=== PATIENT | male | born 1940 | race Caucasian/White ===

== ENCOUNTER 2016-12-04 23:07 | Inpatient (IN) | payer MEDICARE ==
--- OUTSIDE RECORDS SUMMARY | 2016-12-04 23:10 | XMS | Clinical Summary ---
:1940 Author Organization [facility] Address [address] [place] [address] Phone Care Team Providers Name Role Phone , Primary Care Provider Unavailable Allergies Not on File Current Medications Not on file Active Problems Not on file Social History Tobacco Use Types Packs/Day Years Used Date Never Assessed Sex Assigned at Date Recorded Not on file Last Filed Vital Signs Not on file Plan of Treatment Not on file Results Not on filefrom Last 3 Months
[2016-12-05] MEDS ORDERED: Adenosine 6 MG/2 ML VIAL ONE (00:20)
[2016-12-05 01:17] LABS: #Lymphocytes 0.7 thou/uL (1.20-3.40); #Monocytes 0.2 thou/uL (0.11-0.59); #Neutrophils 10.6 thou/uL (1.40-6.50); %Eosinophils 0.1 % (0.0-10.0); %Monocytes 1.3 % (0.0-10.0); Hematocrit 47.7 % (42.0-52.0); Mean Platelet Volume 5.8 fL (7.4-10.4); Red Blood Cell (RBC) Count 5.16 mill/uL (4.70-6.10); White Blood Cell (WBC) Count 11.5 thou/uL (4.8-10.8)
[2016-12-05] MEDS ORDERED: Enoxaparin Sodium 60 MG/0.6 ML SYRINGE ONE (01:38)
[2016-12-05 01:47] LABS: ALT (SGPT) 42 U/L (8-55); AST (SGOT) 117 U/L (5-34); Alkaline Phosphatase 63 U/L (40-150); Anion Gap 13 mmol/L (10-20); BUN (Urea Nitrogen) 17 mg/dL (8.4-25.7); Bilirubin, Total 1.5 mg/dL (0.2-1.2); Calc. Creatinine Clearance 0 mL/min (70-130); Calcium 9.2 mg/dL (7.8-10.44); Carbon Dioxide 23 mmol/L (23-31); Chloride 104 mmol/L (98-107); Estimated GFR-MDRD 83; Globulin 3.7 g/dL (2.4-3.5); Magnesium 2.1 mg/dL (1.6-2.6); Protein, Total 7.5 g/dL (5.8-8.1)
[2016-12-05 01:59] LABS: Troponin I 0.909 ng/mL (< 0.028)
[2016-12-05 02:01] LABS: CK (CPK) 7542 U/L (30-200)
--- NOTE | 2016-12-05 02:01 | PDOC.EVN ---
Event Note - Event Note Event Note: 329270 H&P Dictated 1. NSTEMI 2. SVT 3. H/O HTN 4. Fall, near syncope 5. H/O HPL plan see orders
[2016-12-05] MEDS ORDERED: HYDROcodone/Acetaminophen 5/325 mg Tablet PO PRN (02:02)
[2016-12-05] MEDS ORDERED: Ondansetron HCl/PF 4 MG/2 ML Vial IVP PRN (02:02)
[2016-12-05] MEDS ORDERED: Acetaminophen 325 MG TAB PO PRN (02:02)
[2016-12-05 02:25] LABS: Bilirubin Negative (Negative); Blood, Urine Large (Negative); Glucose, Urine (Dipstick) Negative (Negative); Ketone, Urine Trace mg/dL (Negative); Nitrite Negative (Negative); Protein, Urine (Dipstick) 30 mg/dL (Neg-Trace); Urobilinogen 0.2 mg/dL (0.2-1.0)
[2016-12-05 02:27] LABS: Bacteria/HPF None Seen HPF (None Seen); Hyaline Casts/LPF 7-10 HYALINE CAST LPF (0-3 Hyaline); Squamous Epithelial 0-3 HPF (0-3); WBC/HPF 0-3 HPF (0-3)
[2016-12-05 02:41] LABS: Yeast-All Forms None Seen HPF (None Seen)
--- NOTE | 2016-12-05 03:18 | HP ---
DATE OF ADMISSION: 12/05/2016 CHIEF COMPLAINT: Fall, near syncope. HISTORY OF PRESENT ILLNESS: The patient is a 75-year-old male with past medical history of hyperten blaire, coronary artery disease, hyperlipidemia, now came to the hospital because of the fall. The pa barry said he was at home and he was went to the restroom and while washing his hand, he fell down, he does not know what happened, he thinks he passed out for a few seconds. When he tried to get up, he could not able to get up and then he did hit his head when he fell down. Denies any bowel or bl adder incontinence. He was very weak, so paramedics brought him to the outside ER. In the outside ER, the patient was found to be having some possible pneumonia, so the patient was transferred here. Upon arrival to our ER, the patient's heart rate was increased up to 180s, so the patient was give n adenosine and heart rate improved and the patient was started on Cardizem drip. The patient denie s any chest pain, denies any palpitation at this time, but complains of generalized weakness. Denie s any headache. Denies nausea, denies vomiting. PAST MEDICAL HISTORY: As per HPI. PAST SURGICAL HISTORY: Cardiac stent. SOCIAL HISTORY: Positive for alcohol usage. Denies smoking, denies any drugs. MEDICATIONS: Reviewed. FAMILY HISTORY: Positive for heart problems. REVIEW OF SYSTEMS: Constitutional: Denies any fever, denies any chills. Head: Positive for bruis ing. Neck: Denies any neck pain. Ears: Denies any ear pain. Cardiovascular system: Denies any chest pain. Denies any palpitations. Respiratory system: Denies any cough, denies any sputum prod uction. Gastrointestinal system: Denies nausea, denies vomiting. Musculoskeletal: Denies any beverley nt deformities. Cranial nerve system: Possible syncope. Psychiatric: Denies anxiety. Integument gonzález: Positive for abrasions. All other review of systems are reviewed and are negative. PHYSICAL EXAMINATION: CONSTITUTIONAL/VITAL SIGNS: At the time of H\T\P performed, blood pressure 140/70, heart rate 80, r espiratory rate 18, pulse ox 97%. GENERAL: The patient appears tired. HEENT: Anterior nares patent. Nose is normal. Ears are normal. Teeth is intact. Tongue is moist . NECK: Supple. No JVD. CARDIOVASCULAR SYSTEM: S1, S2 present. Regular rate and rhythm, no murmurs, no rubs, no gallops. RESPIRATORY SYSTEM: No wheezing, no rhonchi. Breath sounds bilaterally. GASTROINTESTINAL: Abdomen is soft, nontender, no guarding, no organomegaly, no masses felt. MUSCULOSKELETAL: Bilateral erythematous, abrasions present and bruising present. Head, forehead re gion positive for abrasion seen. INTEGUMENTARY: Positive for abrasions. CRANIAL NERVES SYSTEM: Awake, follows commands. Speech is clear. PSYCHIATRIC: Mood is appropriate at this time. LABORATORY DATA AND IMAGING: At the time of H\T\P performed, BMP showed sodium 136, potassium 3.6, chloride 104, CO2 of 23, BUN of 17, creatinine 0.89 and troponin 0.88 in the outside ER. AST 117, A LT 42, CK pending. Albumin 3.8. White count 11.5, hemoglobin 15.9, platelet count is 178. EKG Pos itive for SVT, positive for ST changes seen, mild. ASSESSMENT AND PLAN: The patient is a 75-year-old male. 1. Mpi-WP-caaiiry elevation myocardial infarction, possible demand ischemia, but need to rule out o ther etiology. Plan to check cardiac enzymes. Plan to consult Cardiology to evaluate the patient. Plan to monitor the patient closely. We will admit the patient to IMU. Plan to give a dose of Rafael enox in the ER if CT head is negative. 2. Fall/near syncope. Monitor closely. Plan to do CT head to rule out any other etiology. We joseph l follow the patient closely. 3. Supraventricular tachycardia, heart rate control at this time. Continue Cardizem drip for tonig ht. We will monitor heart rate closely. He has had a cardiac ablation in the past per patient and patient . We will wait for Cardiology input. We will check 2D echo. 4. History of hypertension. Continue home blood pressure medications. 5. Coronary artery disease and hyperlipidemia. Continue home medications. The case was discussed in detail with the patient.
[2016-12-05 04:17] LABS: Hematocrit 46.6 % (42.0-52.0); Red Blood Cell (RBC) Count 5.02 mill/uL (4.70-6.10); White Blood Cell (WBC) Count 11.1 thou/uL (4.8-10.8)
[2016-12-05 04:26] LABS: Band 6 % (5-11); Neutrophil 90 % (42-75)
[2016-12-05 04:39] VITALS: BMI 35.8
[2016-12-05 04:45] LABS: Anion Gap 14 mmol/L (10-20); BUN (Urea Nitrogen) 16 mg/dL (8.4-25.7); Calc. Creatinine Clearance 111 mL/min (70-130); Calcium 9.1 mg/dL (7.8-10.44); Carbon Dioxide 25 mmol/L (23-31); Chloride 104 mmol/L (98-107); Estimated GFR-MDRD 79
[2016-12-05] MEDS: Sodium Chloride 0.9% 1,000 ML IV SCH ×2 (05:00→14:43)
[2016-12-05 05:01] LABS: Critical Call Chem Troponin I RESULT DECREASING; Troponin I 0.696 ng/mL (< 0.028)
--- NOTE | 2016-12-05 08:11 | CON ---
DATE OF CONSULTATION: 12/05/2016 CONSULTING PHYSICIAN: Dr. Malik REASON FOR CONSULTATION: ICU management. HISTORY OF PRESENT ILLNESS: The patient is a pleasant 75-year-old male who was found down at home y esterday. Apparently he had some type of syncopal spell. He could not manage to get himself up to call for help. He had turned the faucet on and was actually found in water as the sink was overflow ing by the time he was found a couple hours later by extended family members. He was brought [facility] to the [place] ER. He states he has had some cough and congestion and it was thought that he could have pneumonia. He was started empirically on antibiotics. He was found to have a heart rate in the 180s and he was placed on Cardizem, which resulted in improvement in heart rate. PAST MEDICAL HISTORY: 1. Hypertension. 2. Supraventricular tachycardia requiring ablation. 3. Coronary artery disease. 4. Gout. PAST SURGICAL HISTORY: Appendectomy and tonsillectomy. SOCIAL HISTORY: Nonsmoker. Drinks a couple beers a month. Lives with his . He is retired [employer]. FAMILY MEDICAL HISTORY: Remarkable for coronary disease. ALLERGIES: PENICILLIN causes throat, lip and tongue swelling. MEDICATIONS PRIOR TO ADMISSION: Vitamin B12 1000 mcg daily, aspirin 81 mg daily, ascorbic acid 500 mg daily, allopurinol 300 mg daily, Ramipril 5 mg daily, omega 3 fatty acid 1000 mg b.i.d. REVIEW OF SYSTEMS: Denies fever, chills, nausea, vomiting, chest pain, hematemesis, melena, hematoc hezia, hematuria, or dysuria. PHYSICAL EXAMINATION: VITAL SIGNS: Temperature 99, pulse 71, blood pressure 127/53. HEENT: Unremarkable. NECK: Without adenopathy or JVD. LUNGS: Clear to auscultation without wheezing or rhonchi. CARDIAC: S1, S2 regular. He is currently on a Cardizem drip. ABDOMEN: Soft, obese, nontender, nondistended. EXTREMITIES: Without clubbing, cyanosis, or edema. LABORATORY AND X-RAY FINDINGS: White blood cell count 11.1, hematocrit 46, platelet count 177. Sod ium 139, potassium 3.8, chloride 104, CO2 25, BUN 16, creatinine 0.9, glucose 206. CPK was noted at 7542 yesterday. Troponin 0.696. Urinalysis showed a few red cells. ASSESSMENT: 1. Supraventricular tachycardia. 2. Syncopal spell at home, likely secondary to supraventricular tachycardia. 3. Rhabdomyolysis, likely secondary to the patient's effort in trying to get up yesterday without s uccess. 4. History of gout. RECOMMENDATIONS: 1. I do not see anything that would indicate that he has an infection. Therefore, I think I would consider discontinuing the antibiotics if the chest x-ray is clear. 2. Continue IV fluids. 3. Recheck CPK tomorrow. 4. He is currently on heparin for DVT prophylaxis. 5. From my standpoint he could go to telemetry.
--- NOTE | 2016-12-05 08:31 | CT ---
PRELIMINARY REPORT/[facility]/EMERGENCY AFTER HOURS PROCEDURE: EXAM: CT Head Without Intravenous Contrast CLINICAL HISTORY: 75 years old, male; Signs and symptoms; Dizziness; Patient HX: Dizzy, acute coronary syndrome TECHNIQUE: Axial computed tomography images of the head/brain without intravenous contrast. COMPARISON: No relevant prior studies available. FINDINGS: Brain: There is no evidence for acute stroke or bleed. There is global and diffuse parenchymal volume loss. There are scattered foci of decreased attenuation in the periventricular and subcortical white matte r, nonspecific, but most consistent with chronic small vessel ischemic changes in patient of this age. Ventricles / cisterns / extra-axial spaces: There is no hydrocephalus, midline shift, or acute extra-axial fluid collection. There is no sulcal effacement. Sinuses: No findings of acute sinusitis or suspicious sinus mass. Bone: No acute fracture or displacement. Impression: Chronic changes without evidence for acute, intracranial pathology. Thank you for allowing us to participate in the care of your patient. Dictated and Authenticated by: Elian Carney MD 12/05/2016 3:13 AM Central Time ([place] \T\ [place]) FINAL REPORT CT BRAIN WITHOUT CONTRAST: I agree with the preliminary report given by Dr. Elian Carney of [facility]. POS: [facility]
[2016-12-05] MEDS ORDERED: Heparin 5,000 UNITS/ML VIAL SC SCH (09:00)
[2016-12-05 09:03] LABS: Troponin I 0.491 ng/mL (< 0.028)
--- NOTE | 2016-12-05 09:41 | PDOC.PN ---
- Subjective Encounter Start Date: 12/05/16 Encounter Start Time: 09:39 Mr. Morelos says he feels fine. He denies having chest pain or shortness of breath, he says not much more short of breath than usual. - Objective MAR Reviewed: Yes Vital Signs & Weight: Vital Signs (12 hours) Temp Pulse Resp Pulse Ox 12/05/16 08:00 99.0 F 73 16 95 12/05/16 04:24 99.0 F 73 16 94 L 12/05/16 04:15 99.0 F Weight Weight 256 lb 9.889 oz Most Recent Monitor Data Heart Rate from ECG 73 NIBP 121/75 NIBP BP-Mean 88 Respiration from ECG 22 SpO2 94 I&O: 12/04/16 12/05/16 12/06/16 06:59 06:59 06:59 Intake Total 156.1 Output Total 250 Balance -93.9 Result Diagrams: 12/05/16 04:00 12/05/16 04:00 Phys Exam - Physical Examination HEENT: PERRLA Respiratory: no wheezing, no rales, no rhonchi, clear to auscultation bilateral Cardiovascular: RRR, no significant murmur Gastrointestinal: soft, non-tender, positive bowel sounds Musculoskeletal: no edema Dx/Plan (1) SVT (supraventricular tachycardia) Code(s): I47.1 - SUPRAVENTRICULAR TACHYCARDIA Status: Acute (2) Dyslipidemia Code(s): E78.5 - HYPERLIPIDEMIA, UNSPECIFIED Status: Acute (3) HTN (hypertension) Code(s): I10 - ESSENTIAL (PRIMARY) HYPERTENSION Status: Acute - Plan * SVT- patient is on a Cardizem drip, and has now converted to sinus. * CAD- will await further recommendations from Cardiology * ? Pneumonia- will await chest X-ray- continue Levaquin in the interim * HTN- blood pressure is controlled * Stable for transfer to Telemetry
--- NOTE | 2016-12-05 09:59 | CON ---
DATE OF SERVICE: 12/05/2016 CRITICAL CARE NOTE The patient is a 75-year-old gentleman with a history of coronary artery disease who presented with syncope. The patient has a long history of coronary artery disease. Please see previous H&P's for complete details. The patient has previously undergone PTCA and stent placement into the left anterior descending artery. He was seen here approximately a year ago with chest pain and dyspnea. He was found also to have SVT. He underwent a cardiac catheterization and was found to have a patent coronary stent. He also underwent ablation for SVT. The patient was in his usual state of health until a few days ago when he started feeling weak. He had subsequently developed diarrhea. He started feeling muscle aching. He went to the bathroom and after having a bowel movement became extremely weak and fell down. He apparently lost consciousness. He became so weak that he could not get out of his bathroom. He was in there for several hours. The patient did not develop any chest discomfort. PAST MEDICAL HISTORY: 1. Coronary artery disease. 2. Hypertension. 3. Dyslipidemia. 4. Gout. PAST SURGICAL HISTORY: Tonsillectomy, appendectomy, and achilles surgery. ALLERGIES: He is allergic to PENICILLIN. MEDICATIONS ON ADMISSION: Aspirin 325 daily, Crestor 20 daily, Altace 5 daily, Allopurinol 300 daily SOCIAL HISTORY: Nonsmoker. PHYSICAL EXAMINATION: GENERAL: This is an obese gentleman in no acute distress. VITAL SIGNS: Blood pressure 121/75. NECK: Showed no jugular venous distention, no carotid bruits. LUNGS: Clear to auscultation. HEART: Regular rate and rhythm, normal S1, S2, no murmurs. ABDOMEN: Nondistended. EXTREMITIES: Showed no edema. SKIN: Warm and dry. NEUROLOGIC: Nonfocal. VASCULAR: Radial pulses are 2+. LABORATORY: Sodium 139, potassium 3.8, chloride 104, bicarbonate 25, BUN 16, creatinine 0.93, glucose 206. CPK was 7542. CPK MB 30, troponin 0.9. White blood cell count is 11.1, hemoglobin 16.0, hematocrit 46.6 and platelets were 177. His EKG revealed normal sinus rhythm with a normal ECG. IMPRESSION: 1. Syncope. 2. Supraventricular tachycardia. 3. History of coronary artery disease with a patent stent in 2016. 4. Probable non-Q-wave myocardial infarction. 5. History of hypertension. 6. Obesity. PLAN: This gentleman had a syncopal episode. It is unclear why he was so weak after his fall. I will obtain an EP consultation. We will recheck the patient' s echocardiogram. We will follow this patient with you through his hospitalization. Critical Care Time: 30 minutes MTDD
[2016-12-05] MEDS: Ascorbic Acid 500 mg Chewable Tablet PO SCH (10:27)
[2016-12-05] MEDS: Allopurinol 300 MG TAB PO SCH (10:28)
[2016-12-05] MEDS: Enoxaparin Sodium 40 MG/0.4 ML SYRINGE SC SCH (20:26)
[2016-12-05] MEDS ORDERED: Ramipril 5 MG CAP PO SCH (21:00)
[2016-12-06] MEDS: Sodium Chloride 0.9% 1,000 ML IV SCH ×2 (05:23→18:03)
[2016-12-06 06:06] LABS: Anion Gap 11 mmol/L (10-20); BUN (Urea Nitrogen) 18 mg/dL (8.4-25.7); CK (CPK) 3484 U/L (30-200); Calc. Creatinine Clearance 123 mL/min (70-130); Calcium 8.6 mg/dL (7.8-10.44); Carbon Dioxide 27 mmol/L (23-31); Chloride 105 mmol/L (98-107); Estimated GFR-MDRD Greater than 90
[2016-12-06] MEDS: Ascorbic Acid 500 mg Chewable Tablet PO SCH (08:15)
[2016-12-06] MEDS: Allopurinol 300 MG TAB PO SCH (08:15)
--- NOTE | 2016-12-06 08:17 | RAD ---
RADIOGRAPH CHEST 1 VIEW: Date: 12/06/16 Time: 0723 HOURS HISTORY: 75-year-old male with pneumonia. COMPARISON: 08/30/15. FINDINGS: Again, inspiration is shallow. Tortuous aorta. Cardiac shadow is partially obscured inferior to the diaphragm because of the shallow inspiration. Diffuse pulmonary engorgement. No consolidation or fra nk pulmonary alveolar edema. No pneumothorax. Lateral costophrenic angles are sharp. No interval yudy nge. IMPRESSION: 1. No evidence of pneumonia, but the posterior lung bases are not visualized, and would require a l ateral view. 2. Pulmonary vascular engorgement, suggesting borderline congestive changes. ARIEL [] POS: [facility]
--- NOTE | 2016-12-06 10:39 | PDOC.PN ---
- Subjective Encounter Start Date: 12/06/16 Encounter Start Time: 10:37 Mr. Morelos says he felt a little dizzy when he got up to go to the bathroom , and now he feels fine. No chest pain. - Objective MAR Reviewed: Yes Vital Signs & Weight: Vital Signs (12 hours) Temp Pulse Resp BP BP Pulse Ox 12/06/16 08:11 97.9 F 69 18 133/64 93 L 12/06/16 04:00 97.5 F L 60 20 129/69 93 L 12/06/16 00:00 97.5 F L 66 20 152/68 H 93 L Weight Weight 249 lb 8 oz Most Recent Monitor Data Heart Rate from ECG 73 NIBP 138/73 NIBP BP-Mean 95 Respiration from ECG 13 SpO2 92 I&O: 12/05/16 12/06/16 12/07/16 06:59 06:59 06:59 Intake Total 156.1 3336 Output Total 250 1810 Balance -93.9 1526 Result Diagrams: 12/05/16 04:00 12/06/16 04:53 Phys Exam - Physical Examination HEENT: PERRLA Respiratory: no wheezing, no rales, no rhonchi, clear to auscultation bilateral Cardiovascular: RRR, no significant murmur Gastrointestinal: soft, non-tender, positive bowel sounds Musculoskeletal: no edema Dx/Plan (1) SVT (supraventricular tachycardia) Code(s): I47.1 - SUPRAVENTRICULAR TACHYCARDIA Status: Acute (2) Dyslipidemia Code(s): E78.5 - HYPERLIPIDEMIA, UNSPECIFIED Status: Acute (3) HTN (hypertension) Code(s): I10 - ESSENTIAL (PRIMARY) HYPERTENSION Status: Acute - Plan * SVT- patient has remained in sinus rhythm so far * HTN - blood pressure is stable * ? Pneumonia- Radiologist did not feel there was evidence for Pneumonia, radiographically- ? stop Levaquin * CAD- stable * Await evaluation by EP.
--- NOTE | 2016-12-06 11:50 | PRG ---
DATE OF SERVICE: 12/06/2016 SUBJECTIVE: The patient is doing better today, had no acute complaints. PHYSICAL EXAMINATION: VITAL SIGNS: Temperature 97.9, pulse 69, respirations 18, O2 sat 93%, blood pressure 133/64. HEENT: Unremarkable. NECK: No JVD. CHEST: Clear. CARDIAC: S1 and S2 regular. ABDOMEN: Soft. EXTREMITIES: No edema. LABORATORY DATA: Sodium 139, potassium 4, chloride 105, CO2 27, BUN 18, creatinine 0.8, glucose 149 . CPK down to 3484. White blood cell count 11.1, hematocrit 46.6, platelet count 46. ASSESSMENT: 1. Supraventricular tachycardia. 2. Rhabdomyolysis. RECOMMENDATIONS: 1. We would continue slow hydration. 2. Agree with stopping the antibiotics. 3. Likely to need an EP study next week.
[2016-12-06] MEDS: Enalaprilat Dihydrate 1.25 MG/ML VIAL SLOW IVP PRN (18:39)
[2016-12-06] MEDS: Enoxaparin Sodium 40 MG/0.4 ML SYRINGE SC SCH (19:35)
[2016-12-07] MEDS: Sodium Chloride 0.9% 1,000 ML IV SCH ×2 (03:39→19:32)
[2016-12-07] MEDS: Ascorbic Acid 500 mg Chewable Tablet PO SCH (09:30)
[2016-12-07] MEDS: Allopurinol 300 MG TAB PO SCH (09:31)
--- NOTE | 2016-12-07 11:06 | PRG ---
DATE OF SERVICE: 12/07/2016 SUBJECTIVE: The patient is awake, alert, doing well, starting to walk around the room. PHYSICAL EXAMINATION: VITAL SIGNS: Temperature 96.2, pulse 58, respirations 18, O2 sat 94%, blood pressure 114/69. HEENT: Unremarkable. NECK: No JVD. LUNGS: Fairly clear. CARDIAC: S1 and S2 regular. ABDOMEN: Soft. EXTREMITIES: No edema. ASSESSMENT: 1. Mild rhabdomyolysis. 2. Status post prolonged episode of supraventricular tachycardia. PLAN: 1. EP study tomorrow. 2. No active pulmonary problems at this point. Please recall if further assistance needed.
--- NOTE | 2016-12-07 11:33 | PDOC.PN ---
- Subjective Encounter Start Date: 12/07/16 Encounter Start Time: 11:31 Mr. Reyes does not have any complaints. today. He has not had any chest pain or shortness of breath. - Objective MAR Reviewed: Yes Vital Signs & Weight: Vital Signs (12 hours) Temp Pulse Resp BP Pulse Ox 12/07/16 08:40 96.2 F L 58 L 18 95 12/07/16 03:47 96.2 F L 58 L 18 114/69 94 L 12/06/16 23:50 98.3 F 61 20 135/63 94 L Weight Weight 250 lb 1.6 oz Most Recent Monitor Data Heart Rate from ECG 73 NIBP 138/73 NIBP BP-Mean 95 Respiration from ECG 13 SpO2 92 I&O: 12/06/16 12/07/16 12/08/16 06:59 06:59 06:59 Intake Total 3336 3195 Output Total 1810 875 Balance 1526 2320 Result Diagrams: 12/05/16 04:00 12/06/16 04:53 Phys Exam - Physical Examination HEENT: PERRLA Respiratory: no wheezing, no rales, no rhonchi, clear to auscultation bilateral Cardiovascular: RRR, no significant murmur Gastrointestinal: soft, non-tender, positive bowel sounds Musculoskeletal: no edema Dx/Plan (1) SVT (supraventricular tachycardia) Code(s): I47.1 - SUPRAVENTRICULAR TACHYCARDIA Status: Acute (2) Dyslipidemia Code(s): E78.5 - HYPERLIPIDEMIA, UNSPECIFIED Status: Acute (3) HTN (hypertension) Code(s): I10 - ESSENTIAL (PRIMARY) HYPERTENSION Status: Acute - Plan * SVT- he has been in sinus rhythm so far * Await EP studies this coming week * Pneumonia- this has been ruled out and antibiotics have been discontinued * HTN- blood pressure is stable.
--- NOTE | 2016-12-07 16:06 | PDOC.CTH ---
Cardiology Progress Note - Subjective No new issues overnight. Rhythm remains stable. Tolerating current meds. Denies CV symptoms. Anticipate EPS this next week with Dr. Henry. - Objective Vital Signs Temp Pulse Resp BP Pulse Ox 12/07/16 12:52 97.7 F 63 20 142/65 H 94 L 12/07/16 08:40 96.2 F L 58 L 18 95 Weight 250 lb 1.6 oz 12/06/16 12/07/16 12/08/16 06:59 06:59 06:59 Intake Total 3336 3195 Output Total 1810 875 Balance 1526 2320 - Physical Examination General/Neuro: alert & oriented x3, NAD Neck: carotid US brisk, no JVD present Lungs: CTA, unlabored respirations Heart: PMI normal, RRR Abdomen: no HSM, NT/ND, soft Extremities: other: (2+ pulses, minimal edema) Other PE findings: Neuro: no focal motor defs - Telemetry Telemetry Rhythm: sinus rhythm - Labs Result Diagrams: 12/05/16 04:00 12/06/16 04:53 Troponin/CKMB CK-MB (CK-2) 30.1 ng/mL (0-6.6) H* 12/05/16 01:07 Troponin I 0.491 ng/mL (< 0.028) H* 12/05/16 08:06 - Assessment/Plan 1. syncope: EP study planned for this week with Dr. Henry. 2. HTN: controlled. Continue medical management.
[2016-12-07] MEDS ORDERED: FLU VACC TS2017-18 (>65YR) 0.5 ML SYRINGE IM ONE (21:00)
[2016-12-07] MEDS: Enoxaparin Sodium 40 MG/0.4 ML SYRINGE SC SCH (21:03)
[2016-12-08] MEDS: Enalaprilat Dihydrate 1.25 MG/ML VIAL SLOW IVP PRN (05:35)
--- NOTE | 2016-12-08 07:56 | PQF ---
CLINICAL DOCUMENTATION IMPROVEMENT CLARIFICATION FORM: ICD-10 Updated PLEASE DO AN ADDENDUM TO THE PROGRESS NOTE WITH ANY DOCUMENTATION UPDATES OR ADDITIONS AND CARRY THROUGH TO DC SUMMARY. THANK YOU. DATE: 12/08 ATTN: DR. HUMBERTO PEOPLES Please exercise your independent, professional judgment in responding to the clarification form. Clinical indicators are provided on the bottom of this form for your review Please check appropriate box(s): AMI TYPE: [ ] Acute Coronary Syndrome (ACS) without Acute [place] meaning Unstable Angina [ ] NSTEMI [ X ] AMI Type II ONSET OF INFARCTION: [ ] Onset Less than 4 weeks of admission [ ] Onset Greater than 4 weeks of admission [ ] Unable to determine DUE TO (if applicable): [ ] Stent occlusion [ ] In-Stent stenosis [ ] Underlying CAD [ ] Other [ X ] Other diagnosis SVT [ ] Unable to determine In addition, please specify: Present on Admission (POA): [X ] Yes [ ] No [ ] Unable to determine CLINICAL INDICATORS - SIGNS / SYMPTOMS / LABS TROP I: 0.909 CKMB: 30.2 (12/05, ADMIT) 0.696 0.491 CARDIOLOGY CONSULT DOCUMENTATION 12/05: IMPRESSION: 4. PROBABLE NON-Q WAVE MYOCARDIAL INFARCTION CHEST PAIN, DIAPHORESIS, DIZZINESS RISKS: HISTORY OF CAD W/STENT HTN HISTORY SVT W/ABLATION EPISODE OF SVT IN ER TREATMENTS: TELEMETRY MONITORING CARDIOLOGY CONSULT THANK YOU! Shanti (This form is maintained as a part of the permanent medical record) 2014 [employer]. All Rights Reserved Shanti Barnett RN, BSN [email or web address] Office: [phone] [facility]
[2016-12-08] MEDS: Allopurinol 300 MG TAB PO SCH (09:32)
[2016-12-08] MEDS: Ascorbic Acid 500 mg Chewable Tablet PO SCH (09:32)
--- NOTE | 2016-12-08 11:09 | PDOC.PN ---
- Subjective Encounter Start Date: 12/08/16 Encounter Start Time: 11:07 Mr. Reyes does not have any complaints. He denies chest pain or difficulty breathing. - Objective MAR Reviewed: Yes Vital Signs & Weight: Vital Signs (12 hours) Temp Pulse Resp BP BP Pulse Ox 12/08/16 09:34 98.3 F 59 L 14 159/73 H 95 12/08/16 06:48 61 20 156/70 H 12/08/16 05:35 170/79 H 12/08/16 04:57 54 L 20 170/79 H 12/08/16 04:00 97.8 F 57 L 18 141/67 H 96 Weight Weight 264 lb Most Recent Monitor Data Heart Rate from ECG 73 NIBP 138/73 NIBP BP-Mean 95 Respiration from ECG 13 SpO2 92 I&O: 12/07/16 12/08/16 12/09/16 06:59 06:59 06:59 Intake Total 3195 3571 Output Total 875 2500 Balance 2320 1071 Result Diagrams: 12/05/16 04:00 12/06/16 04:53 Phys Exam - Physical Examination HEENT: PERRLA Respiratory: no wheezing, no rales, no rhonchi, clear to auscultation bilateral Cardiovascular: RRR, no significant murmur Gastrointestinal: soft, non-tender, positive bowel sounds Musculoskeletal: no edema Dx/Plan (1) SVT (supraventricular tachycardia) Code(s): I47.1 - SUPRAVENTRICULAR TACHYCARDIA Status: Acute (2) Dyslipidemia Code(s): E78.5 - HYPERLIPIDEMIA, UNSPECIFIED Status: Acute (3) HTN (hypertension) Code(s): I10 - ESSENTIAL (PRIMARY) HYPERTENSION Status: Acute - Plan * SVT- awaiting EP studies * HTN- blood pressure is controlled * .
[2016-12-08] MEDS: Sodium Chloride 0.9% 1,000 ML IV SCH (12:14)
--- NOTE | 2016-12-08 20:11 | PRG ---
DATE OF SERVICE: 12/08/2016 ELECTROPHYSIOLOGY FOLLOWUP NOTE SUBJECTIVE: Mr. Morelos seems to be doing better. His breathing has improved. He has no new complaints at this time. OBJECTIVE DATA: VITAL SIGNS: Blood pressure is 159/73, heart rate 59, respirations 14, temperature 98.3 degrees Fahrenheit. GENERAL: Alert and oriented man in no apparent distress, elevated BMI. NECK: Supple. Jugular veins not distended. CHEST: Coarse, no crackles. ABDOMEN: Benign. Bowel sounds positive. EXTREMITIES: Lower extremities without edema, clubbing, or cyanosis. DATABASE: Telemetry strips reviewed revealing a short run of SVT like arrhythmia on the first, but no recurrence since. P waves are suspicious to be following the QRS by about 100 milliseconds. The echocardiogram report on 12/08/2016 shows LVEF 60%-65%. No regional wall motion abnormalities. ASSESSMENT AND PLAN: Mr. 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 Now, he is returning with recurrent tachycardia. The mechanisms are possible: recurrent orthodromic reciprocating tachycardia versus atrial tachycardia cannot be ruled out either. I discussed the option of EP study versus medical therapy at this time. He would like to have a more definitive EP ablation route. Risks and benefits again detailed to the family, they understand and willing to proceed. We will schedule him for tomorrow afternoon. He is kept n.p.o. after midnight. [facility]
[2016-12-08] MEDS: Enoxaparin Sodium 40 MG/0.4 ML SYRINGE SC SCH (20:43)
[2016-12-09] MEDS: Sodium Chloride 0.9% 1,000 ML IV SCH (00:07)
[2016-12-09 05:56] LABS: #Eosinphils 0.3 thou/uL (0.0-0.7); #Lymphocytes 1.4 thou/uL (1.20-3.40); #Monocytes 0.8 thou/uL (0.11-0.59); #Neutrophils 5.2 thou/uL (1.40-6.50); %Basophils 0.1 % (0.0-1.0); %Eosinophils 3.3 % (0.0-10.0); %Lymphocytes 18.9 % (21.0-51.0); %Monocytes 10.1 % (0.0-10.0); Hematocrit 43.9 % (42.0-52.0); Mean Platelet Volume 6.3 fL (7.4-10.4); White Blood Cell (WBC) Count 7.6 thou/uL (4.8-10.8)
--- NOTE | 2016-12-09 06:05 | CON ---
DATE OF CONSULTATION: 12/05/2016 ELECTROPHYSIOLOGY CONSULTATION REPORT REFERRING PHYSICIAN: Nikolay Hull M.D. I am seeing Mr. Morelos at our [facility] as an electrophysiology senior solutions consultant. His problems are: 1. Recurrent supraventricular tachycardia. A. Prior history of EP study and radiofrequency ablation in 08/31/[address] 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 2. History of coronary artery disease with prior stents. 3. History of normal LVEF noted in the past. 4. Coronary artery risk factors. A. Hypertension. B. Hyperlipidemia. C. Obesity. ALLERGIES: PENICILLIN. MEDICATIONS PRIOR TO ADMISSION: Aspirin, ramipril, cyanocobalamin, ascorbic acid, omega-3 fatty acid, allopurinol. Currently, the patient is also on diltiazem. SUBJECTIVE: Mr. Morelos has been admitted on the with complaints of falling down for a couple of seconds. He could not get up and eventually took some while to have him calling the ambulance. He was evaluated in an outside ER and possible pneumonia was found. He was subsequently transferred to our facility. Although he has sinus rhythm initially, his heart rate quickly increased to 180 beats per minute and EKG documented narrow complex SVT. The patient was started on IV adenosine which terminated the arrhythmia, but also, IV diltiazem drip was started. He had a short recurrence of the arrhythmia while on the monitor. Although he had full loss of consciousness on admission, no further loss of consciousness spells is documented. No stroke- like symptoms, no neurological deficits, no fever, chills, or cough. No PND or orthopnea. REVIEW OF SYSTEMS: The rest of 12-point review of systems is unremarkable. PAST MEDICAL HISTORY: As above. SOCIAL HISTORY: The patient denies smoking, ETOH, or drug abuse. FAMILY HISTORY: Noncontributory. OBJECTIVE DATA: VITAL SIGNS: Blood pressure 136/65, heart rate 60, respiratory rate 16, temperature 98.3 degrees Fahrenheit. GENERAL: He is an alert and oriented man in no apparent distress. NECK: Supple. Jugular veins are not distended. CHEST: Coarse without crackles. CARDIOVASCULAR: Heart sounds are regular to rate and rhythm. No murmur or gallop. ABDOMEN: Benign. Bowel sounds positive. EXTREMITIES: Lower extremity without edema, clubbing, or cyanosis. Pulses are adequate. NEUROLOGIC: The patient is nonfocal. MUSCULOSKELETAL: No joint swelling or deformities. SKIN: Without rash. DATABASE: The EKG is reviewed revealing initially sinus rhythm with no significant ST-T changes. Telemetry strips do reveal episodes of narrow complex SVT with rates up to 161 beats per minute. The P waves are somewhat difficult to elicit, but possibly following the QRS by about 100 milliseconds. Subsequent EKG reveals sinus rhythm, rate of 89 beats per minute, no significant ST-T changes. The rhythm strips with a tachycardia show episodes of PVCs which did not terminate the arrhythmia. There seems to be a termination documented possibly demonstrating tachycardia terminating most likely with QRS. LABORATORY DATA: White cell count is 11.5, hemoglobin 15.9, platelet count is 178. Sodium 139, potassium 3.8, BUN is 16, creatinine 0.9. Troponin was 0.69 and 0.49. Once again the CK is elevated at 3408 possibly related to the fall. A chest x-ray is pending. ASSESSMENT AND PLAN: Mr. 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 His pathway was ablated, but now he has recurrence. I discussed with him options of continued medical therapy versus ablation procedure. He would prefer more definitive study which will be the invasive EP study. He is willing to proceed. We will schedule him for a near date. In the meantime, though he will need to recover from this significant fall, possible pneumonia, and rhabdomyolysis like picture. Elevated troponin likely related to demand ischemia with rapid heart rates, treatments per Dr. Hull. GREG
[2016-12-09 06:25] LABS: Anion Gap 11 mmol/L (10-20); Calc. Creatinine Clearance 147 mL/min (70-130); Carbon Dioxide 23 mmol/L (23-31); Chloride 106 mmol/L (98-107); Estimated GFR-MDRD Greater than 90
[2016-12-09] MEDS: Ascorbic Acid 500 mg Chewable Tablet PO SCH (08:45)
[2016-12-09] MEDS: Allopurinol 300 MG TAB PO SCH (08:46)
[2016-12-09] MEDS: Ramipril 5 MG CAP PO SCH (10:01)
--- NOTE | 2016-12-09 10:13 | PDOC.PN ---
- Subjective Encounter Start Date: 12/09/16 Encounter Start Time: 10:10 Mr. Reyes does not have any complaints. He denies chest pain or dyspnea. - Objective MAR Reviewed: Yes Vital Signs & Weight: Vital Signs (12 hours) Temp Pulse Resp BP BP BP Pulse Ox 12/09/16 10:01 145/68 H 12/09/16 08:00 98.1 F 55 L 18 145/68 H 95 12/09/16 04:00 97.7 F 54 L 18 154/67 H 95 Weight Weight 263 lb 3.2 oz Most Recent Monitor Data Heart Rate from ECG 73 NIBP 138/73 NIBP BP-Mean 95 Respiration from ECG 13 SpO2 92 I&O: 12/08/16 12/09/16 12/10/16 06:59 06:59 06:59 Intake Total 3571 2175 Output Total 2500 1925 Balance 1071 250 Result Diagrams: 12/09/16 05:40 12/09/16 05:40 Phys Exam - Physical Examination HEENT: PERRLA Respiratory: no wheezing, no rales, no rhonchi, clear to auscultation bilateral Cardiovascular: RRR, no significant murmur Gastrointestinal: soft, non-tender, positive bowel sounds Musculoskeletal: no edema Dx/Plan (1) SVT (supraventricular tachycardia) Code(s): I47.1 - SUPRAVENTRICULAR TACHYCARDIA Status: Acute (2) Dyslipidemia Code(s): E78.5 - HYPERLIPIDEMIA, UNSPECIFIED Status: Acute (3) HTN (hypertension) Code(s): I10 - ESSENTIAL (PRIMARY) HYPERTENSION Status: Acute - Plan * SVT- his heart rate has been controlled * Plan is for EP study with ablation * HTN- blood pressure is stable.
[2016-12-09] MEDS ORDERED: Propofol 1,000 MG/100 ML VIAL IV ONE (13:43)
[2016-12-09] MEDS ORDERED: Propofol 200 MG/20 ML VIAL ONE ×2 (14:08)
[2016-12-09] MEDS ORDERED: PHENYLEPHRINE-NS 100 MCG/ML 10 ML SYRINGE ONE (14:08)
[2016-12-09] MEDS ORDERED: Glycopyrrolate 0.2 MG/ML 5 ML SYRINGE ONE (14:08)
[2016-12-09] MEDS ORDERED: Succinylcholine Chloride 20 MG/ML 10 ml SYRINGE FS ONE (14:08)
[2016-12-09] MEDS ORDERED: Propofol 500 MG/50 ML VIAL ONE ×4 (14:19→16:29)
[2016-12-09] MEDS ORDERED: Heparin 10,000 UNITS/1 ML VIAL ONE (14:50)
[2016-12-09] MEDS ORDERED: Isoproterenol 0.2 MG/1 ML AMP ONE (14:51)
[2016-12-09] MEDS ORDERED: Heparin 25,000 units/D5W 500 ML ONE (16:28)
[2016-12-09] MEDS ORDERED: Protamine Sulfate 50 MG/5 ML VIAL ONE (16:45)
[2016-12-09] MEDS ORDERED: Ondansetron HCl/PF 4 MG/2 ML Vial IVP PRN ×2 (17:27→18:13)
[2016-12-09] MEDS ORDERED: Promethazine HCl 25 MG/ML VIAL IM PRN (17:27)
[2016-12-09] MEDS ORDERED: Promethazine HCl 25 MG/ML VIAL SLOW IVP PRN (17:27)
[2016-12-09] MEDS ORDERED: Silver Sulfadiazine 1% Cream 50 GM JAR TOP PRN (18:13)
[2016-12-09] MEDS ORDERED: Bisacodyl 5 MG TAB PO PRN (18:13)
[2016-12-09] MEDS ORDERED: Mag-Al 1200 mg/1200 mg/30 ML UDCUP PO PRN (18:13)
[2016-12-09] MEDS ORDERED: diphenhydrAMINE HCl 25 MG CAP PO PRN (18:13)
[2016-12-09] MEDS ORDERED: Temazepam 15 MG CAP PO PRN (18:13)
[2016-12-09] MEDS ORDERED: Bisacodyl 10 MG SUPP PR PRN (18:13)
[2016-12-09] MEDS ORDERED: Nitroglycerin 0.4 MG TAB (25 Tab Bottle) SL PRN (18:13)
[2016-12-09] MEDS ORDERED: traMADol HCl 50 MG TAB PO PRN (18:13)
[2016-12-09] MEDS: Enoxaparin Sodium 40 MG/0.4 ML SYRINGE SC SCH (20:45)
--- NOTE | 2016-12-10 00:31 | CCLSPC ---
DATE OF SERVICE: 12/09/2016 ELECTROPHYSIOLOGY STUDY AND RADIOFREQUENCY ABLATION REPORT REFERRING PHYSICIAN: Nikolay Gutierrez REASON FOR PROCEDURE: Mr. Morelos is a 75-year-old man with a prior history of coronary artery disease as well as SVT, status post radiofrequency ablation in last year demonstrating a left-sided concealed accessory pathway, now returns with recurrent SVT episodes here for EP study and ablation. PROCEDURE: The patient received general anesthesia by the Anesthesia specialist. The left and right femoral venous area were prepped, draped, and anesthetized using subcutaneous lidocaine. Using a vascular ultrasound, left femoral vein was accessed x3 and two 6- and 8-Wallisian sheaths were introduced. Through these, a decapolar catheter was advanced to the CS position. An octapolar catheter was advanced to the His position and a quadripolar catheter was advanced to the RV position. With the help of these catheters, a comprehensive EP study was performed demonstrating eccentric retrograde VA activation. A narrow-complex supraventricular tachycardia with tachycardia cycle length of 335 milliseconds, VA timing was 120 milliseconds with the earliest activation of CS 7-8 area was noted. Following that, the right femoral vein was accessed and an 8- and an 11-Wallisian short sheath was introduced. Comprehensive mapping of the right atrium was performed finding earliest activation in the slow pathway area during tachycardia. RF Ablation at the slow pathway area performed leaving the CS 7-8 as the earliest retrogade atrial activation point after that but did not eliminate the tachycardia. Following that, an ICE catheter was advanced to the right atrium and with ICE catheter monitoring, a transseptal catheterization was performed using a SR2 sheaths of VIPerks transseptal needle. IV Heparin bolus and drip was delivered with ACT monitoring. After reinduction of the tachycardia mapping of the Left atrium and prox LV was performed and the earliest atrial activation was found in the mid-posterior mitral annular area. Clear pathway potentials were also demonstrated and radiofrequency ablation was performed at this point promptly eliminating VA conduction creating VA block in about 10 seconds of the initiation of the ablation. The VA conduction changed after this with VA Wenckebach cycle length increased to 480 milliseconds and AV Wenckebach cycle length was at 450 milliseconds. LV pacing did also not demonstrate residual accessory pathways. Total of 3 right atrial and a single left atrial RF ablation was delivered. Repeat measurements and induction maneuvers were performed on Isuprel with no recurrence of tachycardia nor the excentric VA activation is noted after that even with isuprel provocation. MEASUREMENTS: Baseline cycle length was 978, sinus rhythm VRS 176, QRS 90, QT is 410, AH 140, HV 56 milliseconds, which did not change with post ablation. Short spontaneous atrial fibrillation was also induced, which required shock termination but did not recur. CONCLUSION: 1. Successful induction of AV reentry tachycardia with eccentric retrograde atrial activation utilizing a concealed accessory pathway at the mid posterior laft atrial/ Mitral anular area. This pathway was ablated and promptly eliminated eccentric retrograde VA conduction and rendered the supraventricular tachycardia non-inducible. 2. On isuprel short paroxysmal atrial fibrillation was also seen but required cardioversion but did not recur off Isuprel. 3. Normal AV cheryl and sinus cheryl function pre and post ablation. POS: DEION GARZA
[2016-12-10] MEDS: Ascorbic Acid 500 mg Chewable Tablet PO SCH (08:01)
[2016-12-10] MEDS: Allopurinol 300 MG TAB PO SCH (08:01)
[2016-12-10] MEDS: Ramipril 5 MG CAP PO SCH (08:01)
[2016-12-10 08:29] VITALS: BP 139/65; TEMP 98.4
--- NOTE | 2016-12-10 12:13 | DIS ---
DATE OF ADMISSION: 12/05/2016 DATE OF DISCHARGE: 12/10/2016 DISCHARGE DIAGNOSES: 1. Persistent supraventricular tachycardia. 2. Syncope. 3. Chest pain with non-ST elevation myocardial infarction, present on admission. 4. Essential hypertension. 5. Syncope. 6. Hyperlipidemia. CONSULTATIONS: 1. Cardiology, Dr. Hull. 2. Pulmonary Critical Care, Dr. Trujillo. 3. Cardiology/electrophysiology, Dr. Henry. PROCEDURES: Electrophysiology study with accessory pathway ablation on 12/09/[address] Henry. HISTORY AND PHYSICAL: Mr. Morelos is a pleasant 75-year-old male with history of prior SVT and a blation, coronary artery disease, who presented to the Emergency Department for a fall and almost pa ssing out. On evaluation in the ER, he was noted to have a pulse rate in the 180s and the patient w as given adenosine with improvement. The patient started on Cardizem drip. He was subsequently adm itted to our service for further workup and evaluation. HOSPITAL COURSE: The patient was seen and examined in the ER and admitted. Cardiology was consulte d and was seen that morning by Dr. Hull. He recommended electrophysiology consultation, which w as placed. Pulmonary was consulted due to the patient's intermediate care status. The patient was seen by Dr. Henry on 12/08. He discussed options with the patient; it was decided to proceed with electrophysiologic study and ablation, and so the patient was scheduled for 12/09. On 12/09, he underwent ablation with good response and remained in sinus rhythm overnight. No new m edications were added. The patient was stable for discharge from Cardiology and Electrophysiology standpoint and was discha rged home in stable condition. PHYSICAL EXAMINATION: Patient was seen and examined on the day of discharge. Discharge plan and disposition were discussed with the patient and his [id number] at the beds charan. DISCHARGE MEDICATIONS: 1. Allopurinol 300 mg daily. 2. Vitamin C 500 mg daily. 3. Aspirin 81 mg daily. 4. [place] 3 1000 mg p.o. b.i.d. 5. Ramipril 5 mg p.o. at bedtime. 6. Crestor 20 mg p.o. at bedtime. FOLLOWUP APPOINTMENTS: 1. Primary care physician within a week. 2. Dr. Hull in [address] Henry in 2-6 weeks per his clinic. DISPOSITION: The patient being discharged home via private vehicle. The patient is being discharged home in good condition.
--- NOTE | 2016-12-11 06:22 | EKG ---
Test Reason : Blood Pressure : / mmHG Vent. Rate : 068 BPM Atrial Rate : 068 BPM P-R Int : 198 ms QRS Dur : 084 ms QT Int : 420 ms P-R-T Axes : 051 -34 022 degrees QTc Int : 446 ms Normal sinus rhythm Left axis deviation Abnormal ECG When compared with ECG of 09-DEC-2016 17:44, (Unconfirmed) No significant change was found Confirmed by ELIDA FELDER ([id number]) on 12/11/2016 6:22:25 AM Referred By: HARVINDER Confirmed By:ELIDA FELDER
--- NOTE | 2016-12-11 06:24 | EKG ---
Test Reason : Blood Pressure : / mmHG Vent. Rate : 056 BPM Atrial Rate : 056 BPM P-R Int : 210 ms QRS Dur : 096 ms QT Int : 484 ms P-R-T Axes : 067 -29 003 degrees QTc Int : 467 ms Sinus bradycardia with 1st degree A-V block Otherwise normal ECG When compared with ECG of 09-DEC-2016 06:40, (Unconfirmed) No significant change was found Confirmed by ELIDA FELDER ([id number]) on 12/11/2016 6:23:28 AM Referred By: HARVINDER Confirmed By:ELIDA FELDER
--- NOTE | 2016-12-11 06:38 | EKG ---
Test Reason : Blood Pressure : / mmHG Vent. Rate : 056 BPM Atrial Rate : 056 BPM P-R Int : 196 ms QRS Dur : 088 ms QT Int : 444 ms P-R-T Axes : 055 -29 018 degrees QTc Int : 428 ms Sinus bradycardia Otherwise normal ECG When compared with ECG of 05-DEC-2016 00:30, (Unconfirmed) Vent. rate has decreased BY 33 BPM\E\ First degree AV block is no longer present. Confirmed by ELIDA FELDER ([id number]) on 12/11/2016 6:37:49 AM Referred By: HARVINDER Confirmed By:ELIDA FELDER
--- NOTE | 2016-12-13 11:54 | EKG ---
Test Reason : Blood Pressure : / mmHG Vent. Rate : 161 BPM Atrial Rate : 000 BPM P-R Int : 000 ms QRS Dur : 090 ms QT Int : 298 ms P-R-T Axes : 000 055 -42 degrees QTc Int : 487 ms Supraventricular tachycardia with occasional Premature ventricular complexes T wave abnormality, consider inferior ischemia Abnormal ECG Same as prior to episode Confirmed by CECILLE WAGONER, HOLLEY ([id number]), art editor JEROME WEINSTEIN ([id number]) on 12/13/2016 11:53:39 AM Referred By: Confirmed By:HOLLEY ODEN MD
--- NOTE | 2016-12-13 11:55 | EKG ---
Test Reason : Blood Pressure : / mmHG Vent. Rate : 089 BPM Atrial Rate : 089 BPM P-R Int : 214 ms QRS Dur : 090 ms QT Int : 382 ms P-R-T Axes : 053 -30 045 degrees QTc Int : 464 ms Sinus rhythm with 1st degree A-V block Left axis deviation Abnormal ECG Same as prior to episode Confirmed by CECILLE WAGONER, HOLLEY ([id number]), dictionary editor JEROME WEINSTEIN ([id number]) on 12/13/2016 11:54:55 AM Referred By: Confirmed By:HOLLEY ODEN MD
== END 2016-12-10 15:30 | disposition home or self-care (01) | DRG 273 ==
LOC: ERS 23:07 → CCU 12-05 02:02 → 2NO 12-05 11:32
PROVIDERS: ADMIT Internal Medicine; ATTEND Internal Medicine
PROC: 02583ZZ Destruction of Conduction Mechanism, Percutaneous Approach (ICD-10-PCS; principal; 2016-12-09)
PROC: 02K83ZZ Map Conduction Mechanism, Percutaneous Approach (ICD-10-PCS; 2016-12-09)
PROC: 4A023FZ Measurement of Cardiac Rhythm, Percutaneous Approach (ICD-10-PCS; 2016-12-09)
PROC: 4A0234Z Measurement of Cardiac Electrical Activity, Percutaneous Approach (ICD-10-PCS; 2016-12-09)
DX: I47.1 Supraventricular tachycardia (principal); I21.A1 Myocardial infarction type 2; M62.82 Rhabdomyolysis; I48.0 Paroxysmal atrial fibrillation; I10 Essential (primary) hypertension; R55 Syncope and collapse; E78.5 Hyperlipidemia, unspecified; M10.9 Gout, unspecified; I25.10 Atherosclerotic heart disease of native coronary artery without angina pectoris; Z23 Encounter for immunization; W01.10XA Fall on same level from slipping, tripping and stumbling with subsequent striking against unspecified object, initial encounter; Z95.5 Presence of coronary angioplasty implant and graft; E66.9 Obesity, unspecified; Z68.35 Body mass index [BMI] 35.0-35.9, adult
CPT/HCPCS: 36415; 70450; 71010; 76942; 80048; 80051; 80053; 81003; 81015; 82550; 82553; 82565; 82947; 83605; 83735; 84484; 85025; 85347; 90471; 90682; 92960; 93005; 93010; 93306; 93462; 93613; 93623; 93653; 93662; 93798; 96365; 96366; 96375; A4216; C1730; C1759; C1769; G0008; G8978-GP-CK; G8979-GP-CJ; G8987-GO-CJ; G8988-GO-CI; J0153; J1644; J1650; J1956; J2704; J2720; Q2036

== ENCOUNTER 2018-10-04 14:13 | Emergency (ER) | payer MEDICARE ==
[2018-10-04 16:07] LABS: ALT (SGPT) 19 U/L (8-55); AST (SGOT) 19 U/L (5-34); Albumin 3.9 g/dL (3.4-4.8); Alkaline Phosphatase 57 U/L (40-150); Anion Gap 11 mmol/L (10-20); BUN (Urea Nitrogen) 19 mg/dL (8.4-25.7); Bilirubin, Total 1.2 mg/dL (0.2-1.2); Calc. Creatinine Clearance 0 mL/min (70-130); Calcium 9.2 mg/dL (7.8-10.44); Carbon Dioxide 26 mmol/L (23-31); Chloride 102 mmol/L (98-107); Estimated GFR-MDRD Greater than 90; Globulin 3.1 g/dL (2.4-3.5); Glucose 114 mg/dL (83-110); Potassium 4.1 mmol/L (3.5-5.1); Sodium 135 mmol/L (136-145)
[2018-10-04] MEDS ORDERED: Gadobenate Dimeglumine 529 MG/1 ML (20ML VIAL) ONE (16:25)
--- NOTE | 2018-10-04 18:46 | MRI ---
Brain MRI with and without contrast: 10/04/2018 COMPARISON: None HISTORY: Headache TECHNIQUE: Multiplanar multisequence MR imaging of the brain obtained with and without contrast FINDINGS: The diffusion weighted imaging demonstrates no evidence for acute infarction. The axial gradient echo imaging demonstrates no evidence for intracranial hemorrhage. There are multiple subcentimeter foci of increased T2 and FLAIR signal within the periventricular and deep white matter suggesting mild small vessel disease. Moderate cerebral volume loss is noted. Arterial flow voids at the axial level of the skull base appear unremarkable on the T2-weighted imagi ng. The imaged paranasal sinuses and mastoid air cells appear well aerated. The postcontrast imaging demonstrates no abnormal enhancement. IMPRESSION: No acute findings.
--- NOTE | 2018-10-04 18:49 | MRI ---
MR angiogram head: 10/04/2018 COMPARISON: None HISTORY: Headache TECHNIQUE: Routine noncontrast enhanced [id number] MR angiography of the head obtained. FINDINGS: Bilateral distal vertebral arteries are patent. The basilar artery and its branches are patent. No saccular aneurysm, high-grade stenosis, or vascula r occlusion is seen involving the posterior circulation. There is a patent posterior communicating artery on the right. There is a origin of the left FILM CUTTER. Imaged extracranial ICA is patent. The ICA bifurcation is unremarkable bilaterally. The M1 segment an d the MCA bifurcation appears unremarkable bilaterally. Distal GLNEN and MCA branches appear within normal limits. There is no saccular aneurysm, high-grade stenosis, or vascular occlusion seen involvi ng the anterior circulation. IMPRESSION: No acute findings.
--- NOTE | 2018-10-04 19:22 | MRI ---
MR angiogram of the neck: 10/04/2018 COMPARISON: None HISTORY: Headache TECHNIQUE: Time of flight and postcontrast MR angiography of the neck obtained. FINDINGS: Antegrade blood flow noted within the carotid and vertebral system bilaterally. Origin of the innominate artery, left subclavian artery, left vertebral artery, left common carotid a rtery, and right subclavian artery appear unremarkable. Origin of right common carotid artery and right vertebral artery not well assessed secondary to motion. Bilateral vertebral arteries are patent . On the basis of NASCET criteria there is no hemodynamically significant stenosis involving the common carotid artery or the internal carotid artery on either side. IMPRESSION: Unremarkable MR angiogram of the neck.
== END 2018-10-04 20:05 | disposition home or self-care (01) ==
LOC: ERS 14:13
DX: R51 Headache (principal); E78.5 Hyperlipidemia, unspecified; I10 Essential (primary) hypertension; I48.91 Unspecified atrial fibrillation
CPT/HCPCS: 36415; 70544; 70549; 70553; 80053; A9577

== ENCOUNTER 2020-05-25 16:15 | Inpatient (IN) | payer MEDICARE ==
[2020-05-25 16:46] LABS: #Eosinphils 0.1 thou/uL (0.0-0.7); #Lymphocytes 1.9 thou/uL (1.20-3.40); #Monocytes 0.8 thou/uL (0.11-0.59); #Neutrophils 6.2 thou/uL (1.40-6.50); %Basophils 0.1 % (0.0-1.0); %Eosinophils 1.6 % (0.0-10.0); %Lymphocytes 20.9 % (21.0-51.0); %Neutrophils 68.3 % (42.0-75.0); Hemoglobin 15.4 g/dL (14.0-18.0); Mean Corpuscular HGB CONC 32.8 g/dL (32.0-36.0); Mean Corpuscular Hemoglobin 30.2 pg (27.0-31.0); Mean Corpuscular Volume 92.1 fL (78.0-98.0); Mean Platelet Volume 5.9 fL (7.4-10.4); Platelet Count 246 thou/uL (130-400); RBC Distribution Width 13.7 % (11.5-14.5); Red Blood Cell (RBC) Count 5.11 mill/uL (4.70-6.10)
[2020-05-25] MEDS ORDERED: Aspirin Chewable 81 MG TAB ONE (16:48)
[2020-05-25] MEDS ORDERED: Nitroglycerin 2% Ointment 1 INCH/1 GM Packet ONE (16:48)
[2020-05-25 17:09] LABS: ALT (SGPT) 25 U/L (8-55); AST (SGOT) 27 U/L (5-34); Albumin 4.1 g/dL (3.4-4.8); Alkaline Phosphatase 68 U/L (40-110); Anion Gap 13 mmol/L (10-20); BUN (Urea Nitrogen) 18 mg/dL (8.4-25.7); Bilirubin, Total 1.1 mg/dL (0.2-1.2); Calc. Creatinine Clearance 0 mL/min (70-130); Calcium 9.5 mg/dL (7.8-10.44); Carbon Dioxide 28 mmol/L (23-31); Chloride 102 mmol/L (98-107); Globulin 3.6 g/dL (2.4-3.5); Glucose 110 mg/dL (83-110); Potassium 3.8 mmol/L (3.5-5.1); Protein, Total 7.7 g/dL (5.8-8.1); Sodium 139 mmol/L (136-145)
[2020-05-25 19:05] LABS: Hemoglobin A1c 5.3 % (4.0-6.0)
[2020-05-25 20:38] LABS: Troponin I Less than 0.010 ng/mL (< 0.028)
[2020-05-25] MEDS ORDERED: Nitroglycerin 0.4 MG TAB (25 Tab Bottle) SL PRN (20:52)
[2020-05-25 20:58] VITALS: BMI 33.1
[2020-05-25 23:36] LABS: Troponin I 0.012 ng/mL (< 0.028)
[2020-05-26] MEDS: Nitroglycerin 2% Ointment 1 INCH/1 GM Packet TOP SCH ×4 (00:02→22:40)
[2020-05-26 04:51] LABS: SARS-CoV-2 PCR by NAA Not Detected (NotDetected)
[2020-05-26 05:18] LABS: #Eosinphils 0.2 thou/uL (0.0-0.7); #Lymphocytes 1.8 thou/uL (1.20-3.40); #Monocytes 0.8 thou/uL (0.11-0.59); #Neutrophils 4.7 thou/uL (1.40-6.50); %Basophils 0.5 % (0.0-1.0); %Eosinophils 3.2 % (0.0-10.0); %Lymphocytes 23.6 % (21.0-51.0); %Monocytes 11.1 % (0.0-10.0); %Neutrophils 61.6 % (42.0-75.0); Hemoglobin 14.1 g/dL (14.0-18.0); Mean Corpuscular HGB CONC 32.4 g/dL (32.0-36.0); Mean Corpuscular Volume 92.5 fL (78.0-98.0); Platelet Count 227 thou/uL (130-400); RBC Distribution Width 13.7 % (11.5-14.5); White Blood Cell (WBC) Count 7.6 thou/uL (4.8-10.8)
[2020-05-26 05:41] LABS: Anion Gap 12 mmol/L (10-20); BUN (Urea Nitrogen) 17 mg/dL (8.4-25.7); Calc. Creatinine Clearance 117 mL/min (70-130); Calcium 8.8 mg/dL (7.8-10.44); Carbon Dioxide 26 mmol/L (23-31); Cardiac Risk 4.3 (Less than 4.5); Chloride 102 mmol/L (98-107); Cholesterol 113 mg/dl (< 200 Desired); Glucose 111 mg/dL (83-110); HDL Cholesterol 26 mg/dL (>60 Neg Risk); LDL Cholesterol, Calculated 52 mg/dL; Sodium 136 mmol/L (136-145); Triglycerides 174 mg/dL (Less than 150)
[2020-05-26] MEDS ORDERED: Aspirin Chewable 81 MG TAB PO SCH (09:00)
[2020-05-26] MEDS ORDERED: Enoxaparin Sodium 40 MG/0.4 ML SYRINGE SC SCH (09:00)
[2020-05-26] MEDS ORDERED: ADENOSINE 60 MG/20 ML VIAL ONE (12:53)
[2020-05-26] MEDS: Ascorbic Acid 500 mg Chewable Tablet PO SCH (14:59)
[2020-05-26] MEDS: Hydrochlorothiazide 25 MG TAB PO SCH (14:59)
[2020-05-26] MEDS: Icosapent Ethyl 1 GM CAPSULE PO SCH ×2 (14:59→20:52)
[2020-05-26] MEDS: Cyanocobalamin (Vitamin B-12) 1,000 MCG TAB PO SCH ×2 (14:59→20:47)
[2020-05-26] MEDS: Allopurinol 300 MG TAB PO SCH (15:00)
[2020-05-26] MEDS: Rosuvastatin 20 MG TAB PO SCH (20:47)
[2020-05-26] MEDS: Ramipril 5 MG CAP PO SCH (20:47)
[2020-05-27 05:31] LABS: #Eosinphils 0.2 thou/uL (0.0-0.7); #Lymphocytes 1.4 thou/uL (1.20-3.40); #Monocytes 0.7 thou/uL (0.11-0.59); #Neutrophils 4.9 thou/uL (1.40-6.50); %Basophils 0.3 % (0.0-1.0); %Eosinophils 2.9 % (0.0-10.0); %Lymphocytes 19.6 % (21.0-51.0); %Monocytes 10.1 % (0.0-10.0); %Neutrophils 67.1 % (42.0-75.0); Mean Corpuscular HGB CONC 33.4 g/dL (32.0-36.0); Mean Corpuscular Hemoglobin 30.8 pg (27.0-31.0); Mean Corpuscular Volume 92.4 fL (78.0-98.0); Mean Platelet Volume 5.9 fL (7.4-10.4); Platelet Count 227 thou/uL (130-400); RBC Distribution Width 13.7 % (11.5-14.5); Red Blood Cell (RBC) Count 4.53 mill/uL (4.70-6.10); White Blood Cell (WBC) Count 7.3 thou/uL (4.8-10.8)
[2020-05-27 05:50] LABS: Anion Gap 11 mmol/L (10-20); BUN (Urea Nitrogen) 18 mg/dL (8.4-25.7); Calc. Creatinine Clearance 118 mL/min (70-130); Calcium 8.8 mg/dL (7.8-10.44); Carbon Dioxide 25 mmol/L (23-31); Chloride 103 mmol/L (98-107); Glucose 119 mg/dL (83-110); Potassium 3.7 mmol/L (3.5-5.1); Sodium 135 mmol/L (136-145)
[2020-05-27] MEDS: Nitroglycerin 2% Ointment 1 INCH/1 GM Packet TOP SCH ×3 (05:57→21:59)
[2020-05-27] MEDS ORDERED: Communication Order-Pharmacy FS SCH (08:45)
[2020-05-27] MEDS: Allopurinol 300 MG TAB PO SCH (10:02)
[2020-05-27] MEDS: Ascorbic Acid 500 mg Chewable Tablet PO SCH (10:03)
[2020-05-27] MEDS: Hydrochlorothiazide 25 MG TAB PO SCH (10:03)
[2020-05-27] MEDS: Cyanocobalamin (Vitamin B-12) 1,000 MCG TAB PO SCH ×2 (10:03→20:09)
[2020-05-27] MEDS: Icosapent Ethyl 1 GM CAPSULE PO SCH ×2 (10:04→20:09)
[2020-05-27] MEDS: Ramipril 5 MG CAP PO SCH (20:10)
[2020-05-27] MEDS: Rosuvastatin 20 MG TAB PO SCH (20:10)
[2020-05-28 05:16] LABS: #Eosinphils 0.2 thou/uL (0.0-0.7); #Lymphocytes 1.5 thou/uL (1.20-3.40); #Monocytes 0.8 thou/uL (0.11-0.59); #Neutrophils 5.4 thou/uL (1.40-6.50); %Basophils 0.2 % (0.0-1.0); %Eosinophils 2.5 % (0.0-10.0); %Lymphocytes 18.7 % (21.0-51.0); %Monocytes 9.6 % (0.0-10.0); %Neutrophils 68.9 % (42.0-75.0); Hemoglobin 14.2 g/dL (14.0-18.0); Mean Corpuscular Hemoglobin 30.5 pg (27.0-31.0); Mean Corpuscular Volume 92.4 fL (78.0-98.0); Mean Platelet Volume 6.1 fL (7.4-10.4); Platelet Count 232 thou/uL (130-400); RBC Distribution Width 13.7 % (11.5-14.5); Red Blood Cell (RBC) Count 4.64 mill/uL (4.70-6.10); White Blood Cell (WBC) Count 7.8 thou/uL (4.8-10.8)
[2020-05-28 05:35] LABS: Anion Gap 8 mmol/L (10-20); BUN (Urea Nitrogen) 17 mg/dL (8.4-25.7); Calc. Creatinine Clearance 110 mL/min (70-130); Calcium 9.1 mg/dL (7.8-10.44); Carbon Dioxide 27 mmol/L (23-31); Chloride 99 mmol/L (98-107); Glucose 117 mg/dL (83-110); Potassium 3.9 mmol/L (3.5-5.1); Sodium 130 mmol/L (136-145)
[2020-05-28] MEDS: Nitroglycerin 2% Ointment 1 INCH/1 GM Packet TOP SCH ×2 (06:01→17:30)
[2020-05-28] MEDS: Sodium Chloride 0.9% 1,000 ML IV SCH ×2 (06:03→17:30)
[2020-05-28] MEDS: Ascorbic Acid 500 mg Chewable Tablet PO SCH (06:04)
[2020-05-28] MEDS: Allopurinol 300 MG TAB PO SCH (06:04)
[2020-05-28] MEDS: Cyanocobalamin (Vitamin B-12) 1,000 MCG TAB PO SCH ×2 (06:04→20:20)
[2020-05-28] MEDS: Icosapent Ethyl 1 GM CAPSULE PO SCH ×2 (06:04→20:20)
[2020-05-28] MEDS ORDERED: Lidocaine 1% (PF) 30 ML VIAL ONE (08:23)
[2020-05-28] MEDS ORDERED: Midazolam HCl 2 mg/2 ml Vial ONE (08:25)
[2020-05-28] MEDS ORDERED: Iopamidol 370 76% 50 ML VIAL FS ONE (09:04)
[2020-05-28] MEDS ORDERED: Iopamidol 370 76% 100 ML VIAL ONE (09:04)
[2020-05-28] MEDS ORDERED: Heparin 10,000 UNITS/ 10 ML VIAL ONE (09:29)
[2020-05-28] MEDS ORDERED: Clopidogrel Bisulfate 300 MG TAB ONE (09:36)
[2020-05-28] MEDS ORDERED: Sodium Chloride 0.9% 1,000 ML IV SCH (09:45)
[2020-05-28] MEDS: Hydrochlorothiazide 25 MG TAB PO SCH (16:15)
[2020-05-28] MEDS: Rosuvastatin 20 MG TAB PO SCH (20:20)
[2020-05-28] MEDS: Ramipril 5 MG CAP PO SCH (20:20)
[2020-05-29 05:17] LABS: #Eosinphils 0.1 thou/uL (0.0-0.7); #Lymphocytes 1.3 thou/uL (1.20-3.40); #Monocytes 0.8 thou/uL (0.11-0.59); #Neutrophils 5.4 thou/uL (1.40-6.50); %Eosinophils 1.6 % (0.0-10.0); %Lymphocytes 16.6 % (21.0-51.0); %Monocytes 10.5 % (0.0-10.0); %Neutrophils 71.2 % (42.0-75.0); Hemoglobin 14.4 g/dL (14.0-18.0); Mean Corpuscular HGB CONC 33.8 g/dL (32.0-36.0); Mean Corpuscular Volume 91.7 fL (78.0-98.0); Mean Platelet Volume 5.9 fL (7.4-10.4); Platelet Count 213 thou/uL (130-400); RBC Distribution Width 13.6 % (11.5-14.5); Red Blood Cell (RBC) Count 4.66 mill/uL (4.70-6.10); White Blood Cell (WBC) Count 7.6 thou/uL (4.8-10.8)
[2020-05-29 05:43] LABS: ALT (SGPT) 18 U/L (8-55); AST (SGOT) 17 U/L (5-34); Albumin 3.7 g/dL (3.4-4.8); Alkaline Phosphatase 61 U/L (40-110); Anion Gap 9 mmol/L (10-20); BUN (Urea Nitrogen) 15 mg/dL (8.4-25.7); Bilirubin, Total 1.8 mg/dL (0.2-1.2); Calc. Creatinine Clearance 115 mL/min (70-130); Calcium 8.7 mg/dL (7.8-10.44); Carbon Dioxide 27 mmol/L (23-31); Chloride 104 mmol/L (98-107); Globulin 3.2 g/dL (2.4-3.5); Glucose 109 mg/dL (83-110); Potassium 3.9 mmol/L (3.5-5.1); Protein, Total 6.9 g/dL (5.8-8.1); Sodium 136 mmol/L (136-145)
[2020-05-29] MEDS: Hydrochlorothiazide 25 MG TAB PO SCH (08:32)
[2020-05-29] MEDS: Ascorbic Acid 500 mg Chewable Tablet PO SCH (08:34)
[2020-05-29] MEDS: Allopurinol 300 MG TAB PO SCH (08:34)
[2020-05-29] MEDS: Cyanocobalamin (Vitamin B-12) 1,000 MCG TAB PO SCH (08:34)
[2020-05-29] MEDS ORDERED: Aspirin Chewable 81 MG TAB PO SCH (09:00)
[2020-05-29] MEDS ORDERED: Clopidogrel Bisulfate 75 MG TAB PO SCH (09:00)
[2020-05-29] MEDS: Icosapent Ethyl 1 GM CAPSULE PO SCH (09:04)
[2020-05-29 12:51] VITALS: TEMP 98.8
[2020-05-29 13:16] VITALS: BP 140/61
== END 2020-05-29 12:40 | disposition home or self-care (01) | DRG 247 ==
LOC: ERS 16:15 → 2SW 18:13 → OBSVTOIN 05-28 08:57
PROVIDERS: ADMIT Student in an Organized Health Care Education/Training Program; ATTEND Family Medicine
PROC: 027034Z Dilation of Coronary Artery, One Artery with Drug-eluting Intraluminal Device, Percutaneous Approach (ICD-10-PCS; principal; 2020-05-28)
PROC: 4A023N7 Measurement of Cardiac Sampling and Pressure, Left Heart, Percutaneous Approach (ICD-10-PCS; 2020-05-28)
PROC: B2111ZZ Fluoroscopy of Multiple Coronary Arteries using Low Osmolar Contrast (ICD-10-PCS; 2020-05-28)
PROC: B2151ZZ Fluoroscopy of Left Heart using Low Osmolar Contrast (ICD-10-PCS; 2020-05-28)
DX: I25.118 Atherosclerotic heart disease of native coronary artery with other forms of angina pectoris (principal); Z20.822 Contact with and (suspected) exposure to COVID-19; I10 Essential (primary) hypertension; M10.9 Gout, unspecified; E78.5 Hyperlipidemia, unspecified; Z95.5 Presence of coronary angioplasty implant and graft; Z88.0 Allergy status to penicillin; Z79.899 Other long term (current) drug therapy; Z79.82 Long term (current) use of aspirin; Z90.49 Acquired absence of other specified parts of digestive tract
CPT/HCPCS: 36415; 71045; 76942; 78452; 80048; 80053; 80061; 83036; 83880; 84484; 85025; 85347; 87635; 92928; 93005; 93010; 93017; 93458; 93798; 94760; 96372; 99152; 99153; A9500; C1874; C9600; G0378; J0153; J1644; J1650; J2001; J2250; Q9967; U0003; U0005

== ENCOUNTER 2020-09-05 20:09 | Inpatient (IN) | payer MEDICARE ==
[2020-09-05] MEDS ORDERED: cefTRIAXone\\ROCEPHIN 1 GM VIAL ONE ×2 (21:17→23:16)
[2020-09-05 21:43] LABS: INR-International Normal Ratio 1.1; PTT 33.9 sec (22.9-36.1); Prothrombin Time 13.8 sec (12.0-14.7)
[2020-09-05 21:45] LABS: #Lymphocytes 1.3 thou/uL (1.20-3.40); #Monocytes 1.6 thou/uL (0.11-0.59); %Basophils 0.1 % (0.0-1.0); %Eosinophils 0.1 % (0.0-10.0); %Lymphocytes 7.2 % (21.0-51.0); %Monocytes 8.7 % (0.0-10.0); %Neutrophils 83.9 % (42.0-75.0); Mean Corpuscular HGB CONC 36.5 g/dL (32.0-36.0); Mean Corpuscular Hemoglobin 33.2 pg (27.0-31.0); Mean Corpuscular Volume 90.9 fL (78.0-98.0); Platelet Count 183 thou/uL (130-400); RBC Distribution Width 13.3 % (11.5-14.5); Red Blood Cell (RBC) Count 4.52 mill/uL (4.70-6.10); White Blood Cell (WBC) Count 17.9 thou/uL (4.8-10.8)
[2020-09-05 21:51] LABS: ALT (SGPT) 16 U/L (8-55); AST (SGOT) 20 U/L (5-34); Albumin 3.8 g/dL (3.4-4.8); Alkaline Phosphatase 67 U/L (40-110); Anion Gap 18 mmol/L (10-20); BUN (Urea Nitrogen) 15 mg/dL (8.4-25.7); Bilirubin, Total 2.4 mg/dL (0.2-1.2); CK (CPK) 166 U/L (30-200); Calc. Creatinine Clearance 0 mL/min (70-130); Carbon Dioxide 19 mmol/L (23-31); Chloride 100 mmol/L (98-107); Globulin 3.3 g/dL (2.4-3.5); Glucose 126 mg/dL (83-110); Potassium 3.4 mmol/L (3.5-5.1); Protein, Total 7.1 g/dL (5.8-8.1); Sodium 134 mmol/L (136-145)
[2020-09-05 21:56] LABS: Bacteria/HPF 4+ HPF (None Seen); Bilirubin Negative (Negative); Blood, Urine 3+ (Negative); Clarity Turbid (Clear); Glucose, Urine (Dipstick) Normal (Negative); Ketone, Urine Negative (Negative); Leukocyte 500 Leu/uL (Negative); Nitrite Negative (Negative); Protein, Urine (Dipstick) 20 mg/dL (Neg-Trace); RBC/HPF 0-3 HPF (0-3); Specific Gravity, Urine 1.011 (1.002-1.036); Squamous Epithelial 0-3 HPF (0-3); Urobilinogen Normal mg/dL (Less than 2); WBC/HPF Greater than 50 HPF (0-3)
[2020-09-06] MEDS ORDERED: Ondansetron PF 4 MG/2 ML Vial IVP PRN (00:30)
[2020-09-06] MEDS ORDERED: Ondansetron ODT 4 MG TAB SL PRN (00:30)
[2020-09-06] MEDS ORDERED: Acetaminophen 325 MG TAB PO PRN (00:30)
[2020-09-06 00:36] VITALS: BMI 33.6
[2020-09-06] MEDS ORDERED: Enoxaparin Sodium 40 MG/0.4 ML SYRINGE SC SCH (11:30)
[2020-09-06] MEDS: Sodium Chloride 0.9% 1,000 ML IV SCH (12:08)
[2020-09-06] MEDS: Acetaminophen 325 MG TAB PO PRN (15:39)
[2020-09-06] MEDS: Rosuvastatin 20 MG TAB PO SCH (20:34)
[2020-09-06] MEDS ORDERED: cefTRIAXone\\ROCEPHIN 1 GM in Sodium Chloride 0.9% 100 ML IVPB SCH (23:00)
[2020-09-07] MEDS: Sodium Chloride 0.9% 1,000 ML IV SCH ×2 (00:12→15:06)
[2020-09-07 06:00] LABS: #Eosinphils 0.2 thou/uL (0.0-0.7); #Lymphocytes 0.9 thou/uL (1.20-3.40); #Monocytes 1.1 thou/uL (0.11-0.59); %Eosinophils 1.7 % (0.0-10.0); %Lymphocytes 10.2 % (21.0-51.0); %Monocytes 11.6 % (0.0-10.0); %Neutrophils 76.4 % (42.0-75.0); Hemoglobin 12.6 g/dL (14.0-18.0); Mean Corpuscular HGB CONC 33.7 g/dL (32.0-36.0); Mean Corpuscular Hemoglobin 31.2 pg (27.0-31.0); Mean Corpuscular Volume 92.5 fL (78.0-98.0); Mean Platelet Volume 6.3 fL (7.4-10.4); Platelet Count 150 thou/uL (130-400); RBC Distribution Width 13.3 % (11.5-14.5); Red Blood Cell (RBC) Count 4.03 mill/uL (4.70-6.10); White Blood Cell (WBC) Count 9.1 thou/uL (4.8-10.8)
[2020-09-07 06:11] LABS: Anion Gap 11 mmol/L (10-20); BUN (Urea Nitrogen) 13 mg/dL (8.4-25.7); Calc. Creatinine Clearance 120 mL/min (70-130); Carbon Dioxide 22 mmol/L (23-31); Chloride 104 mmol/L (98-107); Glucose 129 mg/dL (83-110); Potassium 3.3 mmol/L (3.5-5.1); Sodium 134 mmol/L (136-145)
[2020-09-07] MEDS: Aspirin 81 mg Enteric Coated Tablet PO SCH (08:00)
[2020-09-07] MEDS: Clopidogrel Bisulfate 75 MG TAB PO SCH (08:00)
[2020-09-07] MEDS: Acetaminophen 325 MG TAB PO PRN (08:07)
[2020-09-07] MEDS ORDERED: Enoxaparin Sodium 40 MG/0.4 ML SYRINGE SC SCH (09:00)
[2020-09-07] MEDS ORDERED: Potassium Chloride 20 MEQ TAB PO SCH (15:30)
[2020-09-07] MEDS ORDERED: Polyethylene Glycol 3350 17 GM Packet PO SCH (18:45)
[2020-09-07] MEDS: Rosuvastatin 20 MG TAB PO SCH (20:43)
[2020-09-07] MEDS: Ciprofloxacin 500 MG TAB PO SCH (20:43)
[2020-09-08] MEDS: Sodium Chloride 0.9% 1,000 ML IV SCH (04:31)
[2020-09-08] MEDS: Ciprofloxacin 500 MG TAB PO SCH (06:08)
[2020-09-08 07:04] LABS: Anion Gap 14 mmol/L (10-20); BUN (Urea Nitrogen) 11 mg/dL (8.4-25.7); Calc. Creatinine Clearance 117 mL/min (70-130); Calcium 8.5 mg/dL (7.8-10.44); Carbon Dioxide 19 mmol/L (23-31); Chloride 106 mmol/L (98-107); Glucose 115 mg/dL (83-110); Potassium 4.7 mmol/L (3.5-5.1); Sodium 134 mmol/L (136-145)
[2020-09-08] MEDS: Aspirin 81 mg Enteric Coated Tablet PO SCH (09:01)
[2020-09-08] MEDS: Clopidogrel Bisulfate 75 MG TAB PO SCH (09:02)
[2020-09-08 12:20] VITALS: BP 145/75; TEMP 98
== END 2020-09-08 14:14 | disposition home or self-care (01) | DRG 872 ==
LOC: ERS 20:09 → T4-A 22:59
PROVIDERS: ADMIT Internal Medicine; ATTEND Internal Medicine
DX: A41.51 Sepsis due to Escherichia coli [E. coli] (principal); N30.01 Acute cystitis with hematuria; I25.10 Atherosclerotic heart disease of native coronary artery without angina pectoris; I48.91 Unspecified atrial fibrillation; I10 Essential (primary) hypertension; E78.00 Pure hypercholesterolemia, unspecified; E78.5 Hyperlipidemia, unspecified; E66.9 Obesity, unspecified; Z68.33 Body mass index [BMI] 33.0-33.9, adult; Z88.0 Allergy status to penicillin; Z95.5 Presence of coronary angioplasty implant and graft; Z90.49 Acquired absence of other specified parts of digestive tract; Z90.89 Acquired absence of other organs; Z79.899 Other long term (current) drug therapy; Z79.82 Long term (current) use of aspirin; Z79.02 Long term (current) use of antithrombotics/antiplatelets
CPT/HCPCS: 36415; 71045; 80048; 80053; 81003; 81015; 82550; 83605; 85025; 85610; 85730; 86850; 86900; 86901; 87040; 87077; 87086; 87186; 93005; 96365; 96376; J0696; J1650; J3490

== ENCOUNTER 2021-11-07 17:12 | Inpatient (IN) | payer MEDICARE ==
[2021-11-07 17:58] LABS: #Lymphocytes 0.7 thou/uL (1.20-3.40); #Monocytes 1.3 thou/uL (0.11-0.59); #Neutrophils 8.4 thou/uL (1.40-6.50); %Eosinophils 0.2 % (0.0-10.0); %Lymphocytes 6.8 % (21.0-51.0); %Monocytes 12.8 % (0.0-10.0); %Neutrophils 80.3 % (42.0-75.0); Hemoglobin 14.6 g/dL (14.0-18.0); Mean Corpuscular HGB CONC 34.6 g/dL (32.0-36.0); Mean Corpuscular Hemoglobin 32.1 pg (27.0-31.0); Mean Corpuscular Volume 92.8 fL (78.0-98.0); Mean Platelet Volume 6.2 fL (7.4-10.4); Platelet Count 179 thou/uL (130-400); RBC Distribution Width 13.3 % (11.5-14.5); Red Blood Cell (RBC) Count 4.56 mill/uL (4.70-6.10); White Blood Cell (WBC) Count 10.5 thou/uL (4.8-10.8)
[2021-11-07 18:19] LABS: ALT (SGPT) 15 U/L (8-55); AST (SGOT) 22 U/L (5-34); Albumin 3.9 g/dL (3.4-4.8); Alkaline Phosphatase 65 U/L (40-110); Anion Gap 15 mmol/L (10-20); BUN (Urea Nitrogen) 17 mg/dL (8.4-25.7); Bilirubin, Total 1.8 mg/dL (0.2-1.2); Calc. Creatinine Clearance 0 mL/min (70-130); Calcium 9.2 mg/dL (7.8-10.44); Carbon Dioxide 25 mmol/L (23-31); Chloride 100 mmol/L (98-107); Estimated GFR 73; Globulin 3.6 g/dL (2.4-3.5); Glucose 131 mg/dL (83-110); Potassium 3.5 mmol/L (3.5-5.1); Protein, Total 7.5 g/dL (5.8-8.1); Sodium 136 mmol/L (136-145)
[2021-11-07 18:44] LABS: CKMB 2.6 ng/mL (0-6.6)
[2021-11-07] MEDS ORDERED: Aspirin Chewable 81 MG TAB ONE (21:36)
[2021-11-07] MEDS ORDERED: Acetaminophen 325 MG TAB PO PRN (21:41)
[2021-11-07] MEDS ORDERED: Rosuvastatin 20 MG TAB PO SCH (22:00)
[2021-11-07] MEDS ORDERED: Ramipril 5 MG CAP PO SCH (22:00)
[2021-11-07 22:19] LABS: Troponin I 0.056 ng/mL (< 0.028)
[2021-11-07 23:35] LABS: SARS-CoV-2 NAA Rapid Test DETECTED (NotDetected)
[2021-11-07 23:43] VITALS: BMI 33.6
[2021-11-08] MEDS ORDERED: Albuterol 200 PUFF (6.7GM INHALER) INH SCH (00:15)
[2021-11-08] MEDS ORDERED: Albuterol 200 PUFF (6.7GM INHALER) INH PRN (00:17)
[2021-11-08 01:32] LABS: Hemoglobin A1c 5.2 % (4.0-6.0)
[2021-11-08 01:43] LABS: Magnesium 1.8 mg/dL (1.6-2.6); Phosphorus 2.9 mg/dL (2.3-4.7)
[2021-11-08 01:49] LABS: Troponin I 0.047 ng/mL (< 0.028)
[2021-11-08] MEDS ORDERED: Magnesium 2 GM/50 ML(in water) 2 GM in Premix Bag 1 BAG IVPB SCH (02:45)
[2021-11-08 05:22] LABS: Anion Gap 12 mmol/L (10-20); BUN (Urea Nitrogen) 17 mg/dL (8.4-25.7); Calc. Creatinine Clearance 106 mL/min (70-130); Carbon Dioxide 28 mmol/L (23-31); Cardiac Risk 2.9 (Less than 4.5); Chloride 98 mmol/L (98-107); Cholesterol 91 mg/dl (< 200 Desired); Estimated GFR 87; Glucose 135 mg/dL (83-110); HDL Cholesterol 31 mg/dL (>60 Neg Risk); LDL Cholesterol, Calculated 40 mg/dL; Potassium 3.1 mmol/L (3.5-5.1); Sodium 135 mmol/L (136-145); Triglycerides 100 mg/dL (Less than 150)
[2021-11-08 05:58] LABS: Band 1 % (5-11); Eosinophils 2 % (0-10); Hemoglobin 13.8 g/dL (14.0-18.0); Lymphocytes 19 % (21-51); MDiff Complete? YES; Mean Corpuscular HGB CONC 34.4 g/dL (32.0-36.0); Mean Corpuscular Hemoglobin 32.1 pg (27.0-31.0); Mean Corpuscular Volume 93.4 fL (78.0-98.0); Mean Platelet Volume 6.1 fL (7.4-10.4); Monocytes 12 % (0-10); Neutrophil 65 % (42-75); Platelet Count 165 thou/uL (130-400); Platelet Morphology Comment Appears Adequate; RBC Distribution Width 13.3 % (11.5-14.5); RBC Morphology Normal; Red Blood Cell (RBC) Count 4.29 mill/uL (4.70-6.10); White Blood Cell (WBC) Count 6.9 thou/uL (4.8-10.8)
[2021-11-08] MEDS ORDERED: Lactated Ringer's 500 ML IV SCH (08:00)
[2021-11-08] MEDS ORDERED: predniSONE 20 MG TAB PO SCH (10:00)
[2021-11-08] MEDS: Lactated Ringer's 1,000 ML IV SCH ×3 (10:43→16:17)
[2021-11-08] MEDS: Enoxaparin Sodium 40 MG/0.4 ML SYRINGE SC SCH (10:44)
[2021-11-08] MEDS: Icosapent Ethyl 1 GM CAPSULE PO SCH ×2 (10:44→18:30)
[2021-11-08] MEDS: Aspirin 81 mg Enteric Coated Tablet PO SCH (10:44)
[2021-11-08] MEDS: Allopurinol 300 MG TAB PO SCH (10:45)
[2021-11-08] MEDS: guaiFENesin ER 600 MG TAB PO SCH ×2 (10:45→21:51)
[2021-11-08] MEDS: Ascorbic Acid 500 mg Chewable Tablet PO SCH (10:45)
[2021-11-08] MEDS: Hydrochlorothiazide 25 MG TAB PO SCH (10:51)
[2021-11-08] MEDS ORDERED: Potassium Chloride 20 MEQ TAB PO SCH (11:00)
[2021-11-08] MEDS ORDERED: Rosuvastatin 20 MG TAB PO SCH ×2 (21:00→23:00)
[2021-11-08] MEDS ORDERED: Ramipril 5 MG CAP PO SCH (21:00)
[2021-11-09 05:21] LABS: #Monocytes 0.7 thou/uL (0.11-0.59); #Neutrophils 7.4 thou/uL (1.40-6.50); %Eosinophils 0.1 % (0.0-10.0); %Lymphocytes 11.1 % (21.0-51.0); %Monocytes 7.1 % (0.0-10.0); %Neutrophils 81.7 % (42.0-75.0); Hemoglobin 13.8 g/dL (14.0-18.0); Mean Corpuscular HGB CONC 33.3 g/dL (32.0-36.0); Mean Corpuscular Hemoglobin 31.3 pg (27.0-31.0); Mean Platelet Volume 6.3 fL (7.4-10.4); Platelet Count 185 thou/uL (130-400); RBC Distribution Width 13.2 % (11.5-14.5); White Blood Cell (WBC) Count 9.1 thou/uL (4.8-10.8)
[2021-11-09 05:46] LABS: Anion Gap 13 mmol/L (10-20); BUN (Urea Nitrogen) 16 mg/dL (8.4-25.7); Calc. Creatinine Clearance 106 mL/min (70-130); Calcium 8.9 mg/dL (7.8-10.44); Carbon Dioxide 29 mmol/L (23-31); Chloride 100 mmol/L (98-107); Estimated GFR 87; Glucose 156 mg/dL (83-110); Potassium 4.4 mmol/L (3.5-5.1); Sodium 138 mmol/L (136-145)
[2021-11-09] MEDS ORDERED: predniSONE 20 MG TAB PO SCH (08:00)
[2021-11-09] MEDS: Icosapent Ethyl 1 GM CAPSULE PO SCH (08:29)
[2021-11-09] MEDS: Aspirin 81 mg Enteric Coated Tablet PO SCH (08:30)
[2021-11-09] MEDS: guaiFENesin ER 600 MG TAB PO SCH (08:30)
[2021-11-09] MEDS: Hydrochlorothiazide 25 MG TAB PO SCH (08:30)
[2021-11-09] MEDS: Allopurinol 300 MG TAB PO SCH (08:30)
[2021-11-09] MEDS: Enoxaparin Sodium 40 MG/0.4 ML SYRINGE SC SCH (08:30)
[2021-11-09] MEDS: Ascorbic Acid 500 mg Chewable Tablet PO SCH (08:30)
[2021-11-09 09:25] VITALS: BP 127/62; TEMP 97.4
[2021-11-09] MEDS ORDERED: Rosuvastatin 20 MG TAB PO SCH (21:00)
== END 2021-11-09 10:26 | disposition home or self-care (01) | DRG 179 ==
LOC: ERS 17:12 → 2SW 21:19 → OBSVTOIN 11-08 16:26
PROVIDERS: ADMIT Family Medicine; ATTEND Family Medicine
PROC: 8E0ZXY6 Isolation (ICD-10-PCS; principal; 2021-11-08)
DX: U07.1 COVID-19 (principal); I10 Essential (primary) hypertension; E78.5 Hyperlipidemia, unspecified; I45.10 Unspecified right bundle-branch block; Z66 Do not resuscitate; I25.10 Atherosclerotic heart disease of native coronary artery without angina pectoris; M10.9 Gout, unspecified; E78.00 Pure hypercholesterolemia, unspecified; I48.91 Unspecified atrial fibrillation; Z88.0 Allergy status to penicillin; Z79.82 Long term (current) use of aspirin; Z79.899 Other long term (current) drug therapy; Z98.890 Other specified postprocedural states; Z90.49 Acquired absence of other specified parts of digestive tract; Z95.5 Presence of coronary angioplasty implant and graft
CPT/HCPCS: 36415; 71045; 72170; 80048; 80053; 80061; 82550; 82553; 83036; 83735; 83880; 84100; 84145; 84443; 84484; 85025; 93005; 96365; 96372; G0378; J1650; J3475; J7120; J7512; U0002